=== PATIENT | male | born 1995 | race African-American/Black ===

== ENCOUNTER 2020-02-12 18:29 | Emergency (ER) | payer OTHER ==
[~2020-02-12] VITALS: Ht 182.9 cm; Wt 91.3 kg
[2020-02-12 18:29] VITALS: BP 131/77
[2020-02-12] MEDS ORDERED: DOXY100C37 PO (18:45)
[2020-02-13] MEDS ORDERED: NORC1TAB7 PO (19:13)
== END 2020-02-12 18:57 | disposition home or self-care (01) ==
LOC: M ED 18:29
DX: L73.9 Follicular disorder, unspecified (principal); Z88.1 Allergy status to other antibiotic agents

== ENCOUNTER 2020-02-13 18:44 | Emergency (ER) | payer OTHER ==
[~2020-02-13] VITALS: Ht 182.9 cm; Wt 90.9 kg
[~2020-02-13 18:44] MED LIST: DOXY100C37 PO
[2020-02-13 18:45] VITALS: BP 125/75
[2020-02-13] MEDS ORDERED: NORC1TAB7 PO (19:13)
[2020-02-13] MEDS ORDERED: NORCO, ANEXSIA 5/325MG TABLET (HYDROcodone/ACETAMINOPHEN) PO ONE (19:15)
== END 2020-02-13 19:20 | disposition home or self-care (01) ==
LOC: M ED 18:44
DX: L73.9 Follicular disorder, unspecified (principal); Z88.8 Allergy status to other drugs, medicaments and biological substances; Z79.899 Other long term (current) drug therapy

== ENCOUNTER 2020-02-15 07:46 | Emergency (ER) | payer OTHER ==
[~2020-02-15] VITALS: Ht 182.9 cm; Wt 90.8 kg
[~2020-02-15 07:46] MED LIST changes: +NORC1TAB7 PO
[2020-02-15] MEDS ORDERED: KETOROLAC 30 MG/ML 1ML VIAL IV ONE (08:45)
[2020-02-15 08:50] LABS: BASO % 0.1 % (0.0-1.0); EOS # 0.1 10^3/uL (0.0-0.5); EOS % 0.4 % (0.0-3.0); HEMATOCRIT 42.8 % (42.0-52.0); HEMOGLOBIN 14.4 g/dl (13.5-17.5); LYMPH # 2.5 10^3/uL (1.5-5.0); LYMPH % 17.9 % (24.0-44.0); MEAN CORPUSCULAR HEMOGLOBIN 29.3 pg (27.0-33.0); MEAN CORPUSCULAR HGB CONC 33.6 g/dl (32.0-36.5); MEAN CORPUSCULAR VOLUME 87.2 fl (80.0-96.0); MONO # 1.5 10^3/uL (0.0-0.8); MONO % 10.6 % (0.0-5.0); NEUTROPHILS # 9.9 10^3/uL (1.5-8.5); NEUTROPHILS % 70.6 % (36.0-66.0); PLATELET COUNT, AUTOMATED 223 10^3/uL (150-450); RED BLOOD COUNT 4.91 10^6/uL (4.30-6.10)
[2020-02-15] MEDS ORDERED: ISOVUE-370 76% 100ML VIAL As Ordered ONE (08:56)
--- NOTE | 2020-02-15 09:21 | REP ---
Clinical: Perirectal abscess. Technique: Axial contrast enhanced images of the pelvis with coronal and sagittal re-formations. 100 ml Isovue 370 intravenous contrast material administered without complication. Findings: Skin thickening / induration and subcutaneous fat stranding is appreciated in the perirectal and medial left gluteal region suggesting cellulitis. No discrete drainable fluid collection or phlegmon is currently identified. No subcutaneous emphysema or foreign body noted. Visualized soft tissue structures of the pelvis including portions of the small and large bowel, bladder and prostate/seminal vesicles appear normal. No pelvic fluid/ascites. No significant obvious adenopathy. Skeletal structures appear intact. Impression: 1. Findings suggesting cellulitis along the medial left buttock/perirectal region. No drainable collection/abscess currently identified. Electronically Signed by Adeel Mann MD 02/15/2020 09:12 A
[2020-02-15] MEDS ORDERED: CIPR-249 PO (09:34)
[2020-02-15] MEDS ORDERED: FLAG500T PO (09:34)
[2020-02-15 09:59] VITALS: BP 116/72
== END 2020-02-15 10:20 | disposition home or self-care (01) ==
LOC: M ED 07:46
DX: K61.0 Anal abscess (principal); L73.9 Follicular disorder, unspecified; Z88.1 Allergy status to other antibiotic agents; F17.218 Nicotine dependence, cigarettes, with other nicotine-induced disorders
CPT/HCPCS: 72193; 80047; 85025; 87070; 87077; 87186; 87205; 96374; 99283; J1885; Q9967

== ENCOUNTER 2020-10-18 16:33 | Emergency (ER) | payer OTHER ==
[~2020-10-18] VITALS: Ht 182.9 cm; Wt 94.4 kg
[~2020-10-18 16:33] MED LIST changes: +CIPR-249 PO; +FLAG500T PO
[2020-10-18] MEDS ORDERED: IBUP-1022 PO (17:15)
[2020-10-18] MEDS ORDERED: AUGM875T28 PO (17:15)
[2020-10-18] MEDS ORDERED: AUGMENTIN 875 MG TAB PO ONE (17:15)
[2020-10-18] MEDS ORDERED: NAPROXEN 250 MG TAB PO ONE (17:15)
[2020-10-18] MEDS ORDERED: ACET-897 PO (17:15)
[2020-10-18 17:22] VITALS: BP 121/70
== END 2020-10-18 17:24 | disposition home or self-care (01) ==
LOC: M ED 16:33
DX: K03.81 Cracked tooth (principal); K04.7 Periapical abscess without sinus; K08.89 Other specified disorders of teeth and supporting structures; F17.200 Nicotine dependence, unspecified, uncomplicated

== ENCOUNTER 2020-12-25 20:00 | Emergency (ER) | payer OTHER ==
[~2020-12-25] VITALS: Ht 182.9 cm; Wt 95.1 kg
[~2020-12-25 20:00] MED LIST changes: +ACET-897 PO; +AUGM875T28 PO; +IBUP-1022 PO
[2020-12-25] MEDS ORDERED: NAPROXEN 250 MG TAB PO ONE (22:20)
[2020-12-25] MEDS ORDERED: methocarbamoL 750 MG TAB PO ONE (22:20)
[2020-12-25] MEDS ORDERED: LIDOCAINE 5% (LIDODERM) PATCH TD ONE (22:20)
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
[2020-12-25] MEDS ORDERED: NAPR-837 PO (23:22)
[2020-12-25] MEDS ORDERED: ROBA750T4 PO (23:22)
[2020-12-25] MEDS ORDERED: ASPE4PAD TOP (23:22)
[2020-12-25 23:43] VITALS: BP 136/84
[2020-12-26] MEDS ORDERED: **NOTE PATIENT COMMENT** MISC XX SCH (21:00)
== END 2020-12-25 23:44 | disposition home or self-care (01) ==
LOC: M ED 20:00
DX: S16.1XXA Strain of muscle, fascia and tendon at neck level, initial encounter (principal); S39.012A Strain of muscle, fascia and tendon of lower back, initial encounter; V49.9XXA Car occupant (driver) (passenger) injured in unspecified traffic accident, initial encounter